=== PATIENT | male | born 1940 | race Caucasian/White ===

== ENCOUNTER 2019-08-18 17:03 | Inpatient (IN) | payer MEDICARE, OTHER ==
[2019-08-18] MEDS ORDERED: TYLENOL325 M1 PO ×2 (18:55→19:06)
[2019-08-18] MEDS ORDERED: ASPIRIN81 M1 PO (18:56)
[2019-08-18] MEDS ORDERED: DAILY VITE1 EACH PO (18:56)
[2019-08-18] MEDS ORDERED: TYLENOL EXTRA500 MG PO (18:56)
[2019-08-18] MEDS ORDERED: MELOXICAM15 MG PO (18:58)
[2019-08-18] MEDS ORDERED: IRON236 MG PO (18:58)
[2019-08-18] MEDS ORDERED: NUPLAZID34 MG PO (18:58)
[2019-08-18] MEDS ORDERED: SEROQUEL25 MG PO (18:59)
[2019-08-18] MEDS ORDERED: VITAMIN B121000 MC1 PO (19:00)
[2019-08-18] MEDS ORDERED: VITAMIN D325 MCG PO (19:00)
[2019-08-18] MEDS ORDERED: CORTEF10 M1 PO (19:01)
[2019-08-18] MEDS ORDERED: LAMICTAL200 MG PO (19:04)
[2019-08-18] MEDS ORDERED: RYTARY ER 36.21 EACH PO (19:05)
[2019-08-18] MEDS ORDERED: ARTIFICIAL TEAR1514 OU (19:10)
[2019-08-18] MEDS ORDERED: GAVISCON 80-141 EACH PO (19:11)
[2019-08-18] MEDS ORDERED: MIRALAX17 GM PO (19:12)
[2019-08-18] MEDS ORDERED: MILK OF MA400 MG/5 M PO (19:12)
[2019-08-18] MEDS ORDERED: SALINE NASAL SP88 ML INH (19:13)
--- NOTE | 2019-08-18 19:20 | NUR ---
MARCIE STRAUSSMACIE H a 79 year old M admitted via wheel chair from the ADMITTING as a voluntary admission. Arrived on unit at 1920. ALLERGIES: PENICILLINS, STATINS. Vital signs are: [id number]/73. The CLIENT'S POA signed the following forms with stated understanding: Authorization For The Release of Medical Information, Consent to Voluntary Admission and Hospitalization, Consent and Release Forms/Receipt of Rights, Acknowledgement of Advance Directive Information, Behavioral Health Consent Form, and Informed Consent of Medications. Admitted under the services of Dr. AVELINA MONTALVOHERBERTH. A search was conducted and hazardous articles were removed. Client was oriented to the unit. MACARIO BYRNE
[2019-08-18 19:54] VITALS: BP 139/73
--- NOTE | 2019-08-18 21:12 | NUR ---
DR DELEON UPDATED ABOUT ADMISSION ON [phone]. PATIENT PLACED UNDER DR DAINEL FOR MEDICAL MANAGEMENT
--- NOTE | 2019-08-18 21:14 | NUR ---
MESSAGE LEFT WITH EXPANDER MACHINE OPERATOR YESSICA THOMAS ABOUT PATIENT BEING ADMITTED TO UNIT WITH ADMIT TIME TO UNIT, DIAGNOSIS, AND STATUS OF ADMISSION
--- NOTE | 2019-08-18 21:20 | NUR ---
DR HERNANDEZ ON UNIT TO SEE PATIENT
[2019-08-18 22:00] VITALS: BP 139/73
--- NOTE | 2019-08-18 22:45 | NUR ---
DR DELEON UPDATED ABOUT PATIENT GRIMACING AND GUARDING LEFT SHOULDER. PATIENT WITH LIMITED RANGE OF MOTION AT THIS TIME. DR DELEON UPDATED ON [phone] AND WITH NEW ORDER FOR LEFT SHOULDER XRAY. PATIENT WITH SCATTERED BRUISING ON BILATERAL UPPER EXTREMITIES AND ON LEFT LATERAL BACK AT VARIOUS STAGES OF HEALING. DRY SCABBED AREA WITH SURROUNDING PINK SKIN AND BLANCHABLE AND OPEN TO AIR TO LEFT BASE OF KNUCKLE ON RING FINGER. NO DRAINAGE NOTED.
--- NOTE | 2019-08-18 22:45 | NUR ---
DR DELEON UPDATED ABOUT PATIENT GRIMACING AND GUARDING LEFT SHOULDER. PATIENT WITH LIMITED RANGE OF MOTION AT THIS TIME. DR DELEON UPDATED ON [phone] AND WITH NEW ORDER FOR LEFT SHOULDER XRAY. PATIENT WITH SCATTERED BRUISING ON BILATERAL UPPER EXTREMITIES AND ON LEFT LATERAL BACK AT VARIOUS STAGES OF HEALING. DRY SCABBED AREA WITH SURROUNDING PINK SKIN AND BLANCHABLE AND OPEN TO AIR TO LEFT BASE OF KNUCKLE ON RING FINGER. NO DRAINAGE NOTED. PATIENT WITH PINK BUTTOCKS BUT BLANCHABLE. HYDORGUARD APPLIED
--- NOTE | 2019-08-18 23:10 | NUR ---
RADIOLOGY ON UNIT TO OBTAIN LEFT SHOULDER XRAY.
--- NOTE | 2019-08-19 01:51 | NUR ---
PATIENT IS FROM [facility] P-CONFUSION, EUTHYMIC, HALLUCINATIONS I-REDIRECTION WITH 1:1 THERAPEUTIC INTERVENTIONS AND PRESENT REALITY. EDUCATE AND ENCOURAGE GROUP THERAPY WHILE AWAKE R-PATIENT MEDICATION COMPLAINT AT HS. PATIENT WITH VISUAL HALLUCINATIONS AND REACHING FOR UNSEEN OBJECTS. PATIENT WITH NONSENSICAL SPEECH AT TIMES AND WITH WORD FINDING DIFFICULTY. PATIENT WITH NONLYRICAL SINGING NOISES FOR LONG PERIODS OF TIME. PATIENT WITH NO DELUSIONS. PATIENT WITH NO SUICIDAL OR HOMICIDAL IDEATIONS. PATIENT PROVIDED FLUIDS AT HS. P-CONTINUE TO ENCOURAGE MEDICATION COMPLIANCE, CONTINUE TO PRESENT REALITY, ENCOURAGE GROUP THERAPY WHILE AWAKE
--- NOTE | 2019-08-19 05:51 | NUR ---
PATIENT SLEPT 6 HOURS OF UNINTERRUPTED SLEEP THROUGHOUT SHIFT. Q 15 MINUTE CHECKS MAINTAINED. 24 HR chart check completed.
[2019-08-19 07:09] LABS: BASO # 0.1 10*3/uL (0.0-0.1); BASO % 0.8 % (0.0-1.0); EOS # 0.5 10*3/uL (0.0-0.4); EOS % 5.5 % (1.0-4.0); HEMATOCRIT 47.5 % (42.0-52.0); HEMOGLOBIN 15.5 g/dl (14.0-18.0); LYMPH # 1.7 10*3/uL (1.3-4.4); LYMPH % 20.6 % (27.0-41.0); MEAN CORPUSCULAR HGB 33.6 pg (27.0-31.0); MEAN CORPUSCULAR HGB CONC 32.6 g/dl (33.0-37.0); MEAN PLATELET VOLUME 9.2 fl (9.6-12.3); MONO # 0.9 10*3/uL (0.1-1.0); MONO % 10.2 % (3.0-9.0); NEUT # 5.2 10*3/uL (2.3-7.9); NEUT % 62.5 % (47.0-73.0); PLATELET COUNT AUTOMATED 285 10*3/uL (130-400); RED BLOOD COUNT 4.61 10*6/uL (4.50-5.90); WHITE BLOOD COUNT 8.3 10*3/uL (4.8-10.8)
[2019-08-19 07:21] LABS: ALBUMIN 3.6 gm/dl (3.1-4.5); ALKALINE PHOSPHATASE 79 U/L (45-117); BUN 22 mg/dl (7-24); CHLORIDE 104 mmol/L (98-107); CHOLESTEROL 168 mg/dL (<200); CREATININE 1.03 mg/dL (0.70-1.30); POTASSIUM 4.3 mmol/L (3.5-5.1); SGOT/AST 12 IU/L (3-35); SGPT/ALT 10 U/L (12-78); SODIUM 139 mmol/L (136-145); TOTAL PROTEIN 6.9 gm/dL (6.4-8.2); TRIGLYCERIDES 97 mg/dl (<150); VLDL CHOLESTEROL 19 mg/dL (6-40)
[2019-08-19 07:23] LABS: HDL CHOLESTEROL 40 mg/dl (40-60); LDL CHOLESTEROL 109 mg/dL (9-159)
[2019-08-19 07:30] LABS: THYROID STIM HORMONE (HS) 0.974 uIU/ml (0.358-4.75)
[2019-08-19 08:00] VITALS: BP 140/66
[2019-08-19 08:41] LABS: VITAMIN D, 25-HYDROXY 64.7 ng/mL (30-100)
--- NOTE | 2019-08-19 08:41 | NUR ---
Patient quiet in dining room with no c/o discomfort. Respirations easy and regular. Vital signs stable. No overt distress. JJ GARCIA
--- NOTE | 2019-08-19 10:00 | NUR ---
PT C/O ABDOMINAL DISCOMFORT TO DR. SORTO. ACCORDING TO TELEPHONE CONVERSATION THIS MORNING WITH NURSE AT [facility], PT HAD A FALL ON WHERE PT WAS FOUND SITTING ON FLOOR BETWEEN W/C AND DRESSER. NURSE STATES NOTES READ THAT PT HAD RED AREAS TO RIGHT UPPER BACK AND BACK OF UPPER ARMS. PT HAD DENIED HITTING HIS HEAD. PT ALSO STATES THAT THEY HAVE NO REPORTED BM FOR PT SINCE 08/16/19. PRN TYLENOL AND MILK OF MAGNESIA GIVEN AT THIS TIME. BOWEL SOUNDS ACTIVE X 4. TENDERNESS AND GUARDING NOTED TO ALL QUADRANTS.
--- NOTE | 2019-08-19 11:10 | NUR ---
PT ATTEMPTING TO GET OUT OF SHIREEN CHAIR. WHEN REDIRECTED PT BECAME COMBATIVE. SECURITY ON UNIT AT THIS TIME TO ASSIST WHILE MAKING ROUNDS. PT MOVED TO LOW STIMULI ENVIRONMENT AND 1:1 PROVIDED. PT ACTIVELY HALLUCINATING. PT REACHING OUT AT UNSEEN OBJECTS AND YELLING GET OUT OF HERE TO UNSEEN OTHERS.
--- NOTE | 2019-08-19 11:36 | NUR ---
PT CONTINUES TO HALLUCINATE AND HANE VERBAL AND PHYSICAL OUTBURSTS. UNABLE TO REDIRECT PT. PT SWATTING AT OBJECTS IN THE AIR AND CONTINUES TO BE COMBATIVE WITH HOC. LOW STIMULI AND 1:1 PROVIDED AND INEFFECTIVE. SNACK/FLUID OVERED WELL AND ALSO INEFFECTIVE. PRN ATIVAN GIVEN AT THIS TIME. WILL MOINITOR EFFECTIVENESS OF MEDICATION.
--- NOTE | 2019-08-19 11:55 | NUR ---
AM GROUP/EXERCISE/LEISURE SKILLS PT OFFERED ACTIVITY BUT STATES "I LIKE TO WATCH PEOPLE PAINT" PT OBSERVING AND LISTENING TO MUSIC BUT BECAME AGITATED TOWARDS END OF GROUP ATTEMPTING TO GET OUT OF RECLINER WITHOUT ASSISTANCE, PT TRYING TO HIT STAFF THEREFORE WAS TAKEN TO LOW-STIMULI QUIET ROOM TO CALM AT THIS TIME. PT WILL BE ENOCURAGED TO ATTEND/PARTICIPATE IN AFTERNOON GROUP.
--- NOTE | 2019-08-19 12:05 | NUR ---
Psychosocial hx completed., client is a poor historian.
--- NOTE | 2019-08-19 15:58 | NUR ---
PM GROUP/CRAFT/MUSIC PT NOT IN ATTENDNACE AT THIS TIME. PT RESTING IN QUIET ROOM.
[2019-08-19 20:00] VITALS: BP 117/64
--- NOTE | 2019-08-19 22:01 | NUR ---
NONSENSICAL SPEECH. TRYING TO TALK BUT UNABLE TO PUT SENTENCE TOGETHER. MEDICATION COMPLIANT BUT REFUSED SNACK. DRANK FULL GLASS OF WATER.. PM CARE VIA MENTAL HEALTH WORKERS. UNABLE TO HAVE 1:1 DUE TO CONFUSION
--- NOTE | 2019-08-20 03:57 | NUR ---
24 HR chart check completed.
[2019-08-20 07:53] VITALS: BP 135/76
--- NOTE | 2019-08-20 09:10 | NUR ---
AND TEAM ON UNIT TO SEE PT AT THIS TIME.
--- NOTE | 2019-08-20 09:21 | NUR ---
MEL HAIR ROOTING MACHINE OPERATOR ON UNIT TO SEE PT AT THIS TIME
--- NOTE | 2019-08-20 15:19 | NUR ---
PRN MOM 30ML GIVEN AT THIS TIME FOR CONSTIPATION. +BSX4. ABD SOFT NON TENDER. NO C/O ABDOMINAL PAIN/DISCOMFORT. WILL MONITOR FOR EFFECTIVENESS.
--- NOTE | 2019-08-20 16:48 | NUR ---
P- CONFUSION, NONSENSICAL SPEECH, RANDOMLY SINGING LOUDLY THIS AM, EPISODE OF CRYING THIS AM, PT UNABLE TO STATE WHY, EPISODE OF PHYSICAL AGGRESSION THIS AFTERNOON. MED COMPLIANT. I- ORIENTATION, MOOD AND BEHAVIORS ASSESSED. ASSESSED PT FOR SI/HI, INTENT OR PLAN. ASSESSED PT FOR S/S HALLUCINATIONS, PARANOIA AND/OR DELUSIONS. MEDICATIONS ADMINISTERED PER PHYSICIAN'S ORDERS. ASSISTANCE WITH ADL CARE PROVIDED NEEDED. ENCOURAGED PT TO ATTEND AND PARTICIPATE IN MAHER MILIEU GROUPS AND ACTIVITIES. R- PT IS ALERT AND ORIENTED TO NAME ONLY, OTHERWISE CONFUSED. ST/LT MEMORY GAPS NOTED. RESPS EASY AND EVEN ON ROOM AIR. MOOD LABILE, AFFECT INAPPROPRIATE AT TIMES. PT SINGING LOUDLY THIS AM, APPEARED ELATED, LATER IN THE MORNING PT NOTED TO BE TEARFUL AND CRYING, UNABLE TO STATE WHY. EMOTIONAL SUPPORT PROVIDED. SPEECH IS LARGELY NONSENSICAL. NEEDS ANTICIPATED AND MET BY STAFF. FEEDING ASSISTANCE PROVIDED. PT DENIES SI/HI, INTENT OR PLAN. PT DENIES HALLUCINATIONS, NO RESPONSE TO INTERNAL STIMULI NOTED. NO PARANOIA OR DELUSIONS NOTED. PT NOTED WITH ONE EPISODE OF PHYSICAL AGGRESSION THIS AFTERNOON, UTILIZATION OF CALMING MUSIC IN LOW STIMULATION AREA PROVIDED AND WAS EFFECTIVE FOR CALMING PT. PT MED COMPLIANT THIS DATE WITHOUT DIFFICULTY. NO DISTRESS NOTED. P- PLAN TO CONTINUE CURRENT TREATMENT, CONTINUE TO MONITOR MOOD AND BEHAVIORS, PROVIDE APPROPRIATE REORIENTATION, REDIRECTION AND 1:1 NEEDED. CONTINUE TO ENCOURAGE MEDICATION COMPLIANCE WELL GROUP ATTENDANCE AND PARTICIPATION.
[2019-08-20 20:00] VITALS: BP 130/75
--- NOTE | 2019-08-20 20:49 | NUR ---
P--CONFUSION/RESTLESS I-ATTEMPTED 1:1 WITHOUT SUCCESS. REDIRECTIONS AND EMOTIONAL SUPPORT PROVIDED. MEDICATED PER ORDERS. BILAT ARM TREMORS NOTED. DRANK FULL GLASS OF WATER AND ATE CONTAINER OF PUDDING WITH MEDICATIONS. WILL ASK TO HAVE DEPAKOTE CHANGED TO SPRINKLES CLIENT IS CHEWING PILLS R--WORD SALAD, NONSENSICLE SPEECH. MOVING SELF AROUND IN CHAIR. APPEARS TO NOT UNDERSTAND WHAT HE IS HEARING. APPEARS TO RESPONDING TO UNSEEN OTHERS, UNSURE IF AUDITORY ALSO P--MONITOR FOR CHANGES IN MOOD/BEHAVIOR. MONITOR Q 15 MINTUES AND PRN FOR SAFETY. CONTINUE EMOTIONAL AND PHYSICAL SUPPORT
--- NOTE | 2019-08-21 00:40 | NUR ---
24 HR chart check completed.
--- NOTE | 2019-08-21 00:51 | NUR ---
INCONTINENT OF URINE. DURING CHANGE CLIENT CRYING FOR HIS MOTHER. EMOTIONAL SUPPORT PROVIDED. WILL CONTINUE TO MONITOR
--- NOTE | 2019-08-21 05:44 | NUR ---
SLEPT LESS THAN 1 HOUR THIS SHIFT. INTERMITTENT BOUTS OF CRYING THIS SHIFT CALLING FOR HIS MOTHER. EMOTIONAL SUPPORT AND TOUCH THERAPY A BENEFIT
[2019-08-21 08:00] VITALS: BP 141/80
--- NOTE | 2019-08-21 08:50 | NUR ---
DR. SINGER ON UNIT TO ASSESS PATIENT.
--- NOTE | 2019-08-21 09:24 | NUR ---
MARCIE MACIE STRAUSS [id number] Please refer to the physician's history and physical for past medical history, comorbid conditions, and allergies. Diagnosis: INTERMITTENT EXPLOSIVE DISORDER Bay Score: 13,MODERATE RISK WOUND DESCRIPTIONS: Wound Number: 1 Location of the wound: LEFT BASE OF KNUCKLE RING FINGER Type of wound: SCAB Thickness: Partial Size: 0.3cm X 0.4cm X <0.1cm Tunneling: NONE Undermining: NONE Sinus Tract: NONE Presence of Exudate:NONE Amount: None Color: Red Odor: None Periwound Skin Appearance: Intact Wound edges: CLOSED INTACT SCAB Pain (associated with wound): DENIED AT TIME OF ASSESSMENT How does patient state this happened? PATIENT UNSURE HOW THIS HAPPENED. Wound Number: 2 Location of the wound: RIGHT EAR LOBE Type of wound: SCAB Thickness: Partial Size: 1cm X 0.3cm X < 0.1cm Tunneling: NONE Undermining: NONE Sinus Tract: NONE Presence of Exudate: NONE Amount: None Color: Red Odor: None Periwound Skin Appearance: Intact Wound edges: CLOSED INTACT SCAB Pain (associated with wound): DENIED AT TIME OF ASSESSMENT How does patient state this happened? PATIENT UNSURE HOW THIS HAPPENED. Surface the patient is resting on: Proform SKIN PREVENTION RECOMMENDATION: 1. Pressure redistribution support surface as appropriate 2. Elevate heels 3. Remove boots/TEDS every shift and reapply 4. Head of bed 30 degrees as tolerated 5. Assess nutrition and hydration 6. Manage moisture 7. Avoid the use of containment devices while in bed 8. Use absorptive products on surfaces limit layers of linens on bed 9. Turn and reposition every 1-2 hours in bed and every 1 hour in chair as tolerated 10. Weight shifts every 15 minutes while up in chair 11. Offloading with pillows or device to keep heels elevated off bed 12. Monitor skin at least every shift 13. Inspect under medical devices twice a day WOUND TREATMENT RECOMMENDATIONS: DRESSING CHANGE LEFT BASE OF KNUCKLE RING FINGER AND RIGHT EAR LOBE: CLEANSE WITH NSS APPLY ANTIBIOTIC OINTMENT TWICE DAILY. MAY COVER LEFT BOTTOM OF KNUCKLE WITH BANDAID.
--- NOTE | 2019-08-21 10:38 | NUR ---
Dr. Becker notified of wound care recommendations. Dr. Becker stated to give printouts to Soha in Hospitalist office.
--- NOTE | 2019-08-21 10:39 | NUR ---
SPOKE WITH GLENIS BOCANEGRA AT [facility]. ADVISED OF PLANS TO DISCHARGE AT THE END OF THE WEEK OR BEGINNING OF NEXT WEEK. DEPENDING ON STABILITY. CLINICAL UPDATES FAXED TO FACILITY. PATIENT IS A USP CARE RESIDENT AT FACILITY AND WILL RETURN AT DISCHARGE.
--- NOTE | 2019-08-21 11:39 | NUR ---
AM GROUP PT DID NOT ATTEND MORNING GROUP THERAPY. PT WAS IN BED RESTING
[2019-08-21 14:13] LABS: BILIRUBIN NEGATIVE (NEGATIVE); BLOOD NEGATIVE (NEGATIVE); CLARITY SL CLOUDY (CLEAR); COLOR YELLOW (YELLOW); GLUCOSE NEGATIVE (NEGATIVE); KETONE 3+ (NEGATIVE)
[2019-08-21 14:14] LABS: LEUKO ESTERASE NEGATIVE (NEGATIVE); NITRITE NEGATIVE (NEGATIVE)
[2019-08-21 14:19] LABS: BACTERIA 2+; EPITHELIAL CELLS 0-2; MUCOUS TRACE; WBC 0-2 wbc/hpf (0-5)
--- NOTE | 2019-08-21 15:40 | NUR ---
PM GROUP PT DID NOT ATTEND AFTERNOON GROUP THERAPY.PT WAS IN BED RESTING.
--- NOTE | 2019-08-21 15:48 | NUR ---
Nursing screen received and chart reviewed. 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 He was [facility] and will return at the end of the week. No further OT indicated at this time. If patient should have a decline in ADLs then refer to OT. Thank you. Lola Meneses OTr/L
[2019-08-21 19:51] VITALS: BP 130/80
--- NOTE | 2019-08-21 20:23 | NUR ---
EVENING/BINGO! PT RESTING IN QUIET ROOM AT THIS TIME. PT WILL BE ENCOURAGED TO ATTEND/PARTICIPATE IN GROUP LONG APPROPIRATE.
--- NOTE | 2019-08-21 22:12 | NUR ---
Patient alert to person only with confusion noted. Memory deficits noted. No overt s/s any responding to internal stimuli noted at this time. Mood is calm at this time. Patient compliant with HS medications mixed in pudding without any difficulty. Non-sensical speech noted. Offered 1:1 for emotional support but unable to understand patient due to non-sensical speech. Redirected/reoriented when needed. Plan to continue to encourage medication compliance. Also continue to offer emotional support and redirect/reorient when needed/appropriate. Will continue to monitor moods/behaviors. Q 15 minute safety checks continued and maintained. See [facility] flowsheet for further documentation.
--- NOTE | 2019-08-22 00:25 | NUR ---
24 HR chart check completed.
--- NOTE | 2019-08-22 02:35 | NUR ---
Patient combative with hands on care. Patient attempting to get out of bed. Patient placed in gerichair due to no safety awareness. Patient brought to quiet room across from nurses' desk. Will continue to monitor moods/behaviors.
--- NOTE | 2019-08-22 03:58 | NUR ---
Upon discharge recommend patient to follow up for wound care in outpatient setting continue current wound care orders at discharging facility.
--- NOTE | 2019-08-22 05:33 | NUR ---
Patient slept approx. 2 hours throughout shift. Q 15 minute safety checks continued and maintained.
--- NOTE | 2019-08-22 07:57 | NUR ---
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 Pt will return to facilty at discharge. Please consult PT if pt has a decline in fucntional status from annabel, thank you. Heather Jenkins PT
[2019-08-22 08:00] VITALS: BP 125/76
--- NOTE | 2019-08-22 08:30 | NUR ---
TREATMENT PLAN MEETING WAS HELD WITH DR. QUAN, ZULEIKA MISTRY, RN, AT, GLASS BLOWER-S AND CHANCELLOR. PLAN FOR DISCHARGE NEXT WEEK. PT. TO RETURN TO [facility] AT DISCHARGE.
--- NOTE | 2019-08-22 08:40 | NUR ---
Dr. Newman notified of wound care recommendations
--- NOTE | 2019-08-22 08:50 | NUR ---
DR. SINGER ON UNIT TO ASSESS PATIENT.
--- NOTE | 2019-08-22 11:41 | NUR ---
AM GROUP PT WAS PRESENT FOR MORNING GROUP THERAPY BUT IS UNABLE TO PARTICIPATE AT THIS TIME DUE TO COGNITIVE IMPAIRMENT. PT WAS IN A SHIREEN CHAIR WITH THE TRAY LOCKED ON AT THE START OF GROUP AND WAS AGITATED AND TRYING TO REMOVE IT. PT TRAY WAS REMOVED AND PT WAS SAT NEAR ME. ANY ATTEMPTS AT CONVERSATION WERE MET WITH AGITATION AND VERBAL AGGRESSION. OTHERWISE, PT WAS NONSENSICAL AND REPETATIVE. PT SMACKED MY ARM A FEW TIMES AND WHEN ASKED WHY HE WAS HITTING ME, THE PT YELLED OUT, "BECAUSE YOU DON'T UNDERSTAND THE THING OF THE MAYBE..."
--- NOTE | 2019-08-22 18:43 | NUR ---
P: TEARFUL, CRYING THROUGHOUT THE DAY, SAD DEMEANOR, DEPRESSED MOOD I: ONE ON ONE FOR EMOTIONAL SUPPORT, REDIRECTION AND ENCOURAGE GROUP ACTIVITIES R: PATIENT IS ALERT TO HANDS ON CARE. LONG/SHORT TERM MEMORY DEFICITS. MOOD IS DEPRESSED MOOD. NO RESPONSE TO INTERNAL STIMULI. NO VOICED STATEMENTS OF HI/SI OR PAIN. MEDICATION COMPLIANT. Q 15 MINUTE SAFETY CHECKS MAINTAINED. 2 PERSON ASSIST WITH ACTIVITIES OF DAILY LIVING, INCONTINENT OF BOWEL AND BLADDER. SET UP FOR MEALS WITH ONE PERSON ASSIST. UP IN SHIREEN CHAIR FOR COMFORT. P: CONTINUE TO MONITOR FOR AGGRESSION AND OUTBURST. PROVIDE ONE ON ONE AND REDIRECTION NEEDED.
[2019-08-22 20:00] VITALS: BP 146/83
--- NOTE | 2019-08-22 20:45 | NUR ---
EVENING/GAMES/CRAFT PT IN ATTENDNACE FIRST 5 MINUTES OF GROUP BUT BEGAN YELLING OUT AND WAS UNABLE TO BE REDIRECTED AT THIS TIME. PT TAKEN TO LOW STIMULI QUIET ROOM TO CALM.
--- NOTE | 2019-08-22 21:48 | NUR ---
Patient alert to person only with confusion noted. Memory deficits noted. No overt s/s any responding to internal stimuli noted at this time. Mood is calm at this time. Patient compliant with HS medications mixed in pudding without any difficulty. Non-sensical speech noted. Offered 1:1 for emotional support but unable to understand patient due to non-sensical speech. Redirected/reoriented when needed. Plan to continue to encourage medication compliance. Also continue to offer emotional support and redirect/reorient when needed/appropriate. Will continue to monitor moods/behaviors. Q 15 minute safety checks continued and maintained. See [facility] flowsheet for further documentation.
--- NOTE | 2019-08-22 21:50 | NUR ---
Staff assisted patient to bed for sleep. Staff noticed reddened abrased area noted to rt inner knee area. No drainage noted at this time. Skin intact at this time. Dr. Kilgore and Alicia Breaux(nursing powerhouse mechanic supervisor) notified. Awaiting wound care orders from doctor.
--- NOTE | 2019-08-22 22:35 | NUR ---
Attempted to call family regarding wound no answer,left message on answering machine.
--- NOTE | 2019-08-23 00:12 | NUR ---
24 HR chart check completed.
--- NOTE | 2019-08-23 05:00 | NUR ---
Patient clamps knees together while in bed or/and in chair.
--- NOTE | 2019-08-23 05:14 | NUR ---
Patient slept approx. 6 hours throughout shift. Q 15 minute safety checks continued and maintained.
--- NOTE | 2019-08-23 05:43 | NUR ---
MARCIE STRAUSSMACIE [id number] Please refer to the physician's history and physical for past medical history, comorbid conditions, and allergies. Diagnosis: INTERMITTENT EXPLOSIVE DISORDER Bay Score: 13,MODERATE RISK WOUND DESCRIPTIONS: Wound Number: 3 Location of the wound: right inner aspect of knee Type of wound: stage 2 Thickness: Partial Size: 3.0cm x 2.0cm x <0.1cm Tunneling: none Undermining: none Sinus Tract: none Presence of Exudate: none Amount: None Color: Red Odor: None Periwound Skin Appearance: Normal Wound edges: intact serum filled blister Pain (associated with wound): none at time of assessment How does patient state this happened? pt unable to state how this happend Surface the patient is resting on: Proform SKIN PREVENTION RECOMMENDATION: 1. Pressure redistribution support surface as appropriate 2. Elevate heels 3. Remove boots/TEDS every shift and reapply 4. Head of bed 30 degrees as tolerated 5. Assess nutrition and hydration 6. Manage moisture 7. Avoid the use of containment devices while in bed 8. Use absorptive products on surfaces limit layers of linens on bed 9. Turn and reposition every 1-2 hours in bed and every 1 hour in chair as tolerated 10. Weight shifts every 15 minutes while up in chair 11. Offloading with pillows or device to keep heels elevated off bed 12. Monitor skin at least every shift 13. Inspect under medical devices twice a day WOUND TREATMENT RECOMMENDATIONS: Clarify Stage 2 guidelines: Cleanse right inner aspect of knee with nss and apply sureprep to wound and cover with optifoam gentle every 2 days and prn for soiling. Please keep pillow or blanket between knees at all times expect for hygiene purposes.
[2019-08-23 07:32] VITALS: BP 131/75
--- NOTE | 2019-08-23 08:16 | NUR ---
PHYSICAL THERAPY Second nursing screen received, pt is a LTC resident at [facility] per nsg and recreational notes pt still with periods of agitation. Please consult PT if pt has had a decline in functiont status and is able to participate with therapy, thank you Heather Jenkins PT
--- NOTE | 2019-08-23 08:30 | NUR ---
TREATMENT PLAN MEETING WAS HELD WITH DR. QUAN, ZULEIKA MISTRY, RN, AT, BUSINESS PLANNING ANALYST-S AND CHIEF FINANCIAL OFFICER. PLAN FOR DISCHARGE NEXT WEEK. PT. WILL RETURN TO [facility] AT DISCHARGE.
--- NOTE | 2019-08-23 11:33 | NUR ---
Nutritional Support Services Note: Pt has wounds. Appetite varies. Regular diet as ordered. Ensure with meals tid. Staff to encourage intake. [place] food preferences and assist as needed. Shelby Zavaleta Rdn Ld
--- NOTE | 2019-08-23 11:47 | NUR ---
AM GROUP PT DID NOT ATTEND MORNING GROUP THERAPY. PT WAS IN BED RESTING.
--- NOTE | 2019-08-23 13:51 | NUR ---
CLINICAL UPDATES FAXED TO [facility] ATTN: GLENIS BOCANEGRA.
--- NOTE | 2019-08-23 15:49 | NUR ---
GROUP/CRAFTS PT IS UNABLE TO ATTEND OR PARTICIPATE IN GROUP THERAPY AT THIS TIME. PT WAS IN BED RESTING.
--- NOTE | 2019-08-23 17:50 | NUR ---
The patient has no complaints and is resting comfortably. BERNADETTE JOAQUIN
[2019-08-23 19:42] VITALS: BP 130/76
--- NOTE | 2019-08-23 22:17 | NUR ---
P- ALERT TO PERSON ONLY. PT ONLY VERBALIZING "NOO" "OHH". I- ASSESS MOOD, ORIENTATION, SI/HI, HALLUCINATIONS, DELUSIONS, OR PAIN. 1:1 THERAPEUTIC INTERACTION WITH EMOTIONAL SUPPORT AND VENTILATION OF FEELINGS PROVIDED. OFFER HS SNACK, FLUIDS, AND COMFORT. PROVIDE MEDICATIONS ON TIME WITH EDUCATION ON EACH. FREQUENT TURNING SCHEDULE, ASSIST WITH ADLS AND TRANSFERING. R- PATIENT SITTING IN DINING ROOM AT TIME OF INTERVIEW WATCHING TV NO ADVERSE MOODS NOTED. ALERT TO PERSON ONLY, CONFUSION NOTED. WHEN ASSESSING ORIENTATION, SI/HI, HALLUCINATIONS, DELUSIONS, OR PAIN PT WOULD ONLY RESPOND STATING "NOOO" OR "OH". NO S/S OF INTERACTING WITH INTERNAL STIMULI. NO S/S OF DISTRESS NOTED, RESPS EVEN AND UNLABORED ON ROOM AIR. MEDICATION COMPLIANT WITH NO DIFFICULTY. COMPLIANT WITH DRESSING CHANGES. PATIENT REFUSED HS SNACK/FLUIDS. PT DID TAKE MEDICATIONS WITH SOME PUDDING. PT WANTING TO GO TO BED AFTER MEDICATIONS. TWO ASSIST TO BED. ASSIST WITH ADLS AND FREQUENT TURNING. P- ASSESS MOOD, ORIENTATION, SI/HI, HALLUCINATOINS, DELUSIONS OR PAIN EVERY SHIFT. PROVIDE MEDS ON TIME. ENCOURAGE FOOD, FLUIDS FREQUENTLY. ASSIST WITH TRANSFERING, ADLS, AND FREQUENT TURNING. 1:1 THERAPEUTIC COMMUNICATION PROVIDED WHEN NECESSARY. FALLING STAR PROGRAM IN PLACE. Q15 MINUTE CHECKS MAINTAINED FOR SAFETY.
--- NOTE | 2019-08-24 06:17 | NUR ---
PATIENT SLEPT 8 HOURS OF UNINTERRUPTED SLEEP THROUGHOUT SHIFT. Q 15 MINUTE CHECKS MAINTAINED. 24 HR chart check completed.
--- NOTE | 2019-08-24 08:01 | NUR ---
Patient eating breakfast in dining room with peers. MHW x1 assisting pt with eating. Respirations easy and regular. Vital signs stable. No overt distress. MARKEL PETER on unit to see pt at this time, update given.
[2019-08-24 08:04] VITALS: BP 112/62
--- NOTE | 2019-08-24 08:40 | NUR ---
ON UNIT TO SEE PT AT THIS TIME.
--- NOTE | 2019-08-24 09:00 | NUR ---
TREATMENT PLAN MEETING WAS HELD WITH DR. QUAN, RN, AT, VAN DRIVER-S AND HOUSEKEEPING DIRECTOR. PLAN FOR DISCHARGE NEXT WEEK WITH RETURN TO [facility].
--- NOTE | 2019-08-24 11:42 | NUR ---
AM GROUP PT WAS PRESENT FOR MORNING GROUP THERAPY RECLINED IN A SHIREEN CHAIR SLEEPING. PT WOKE A FEW TIMES, LOOKED AROUND AND WENT BACK TO SLEEP.
--- NOTE | 2019-08-24 13:33 | NUR ---
P- CONFUSION, NAPPING INTERMITTENTLY T/O SHIFT, EASILY AROUSABLE. NO ADVERSE BEHAVIORS. I- ORIENTATION, MOOD AND BEHAVIORS ASSESSED. ASSESSED PT FOR SI/HI, INTENT OR PLAN. ASSESSED PT FOR S/S HALLUCINATIONS, PARANOIA AND/OR DELUSIONS. MEDICATIONS ADMINISTERED PER PHYSICIAN'S ORDERS. ASSISTANCE WITH ADL CARE PROVIDED NEEDED. ENCOURAGED PT TO ATTEND AND PARTICIPATE IN MAHER MILIEU GROUPS AND ACTIVITIES. R- PT IS ALERT AND ORIENTED TO NAME ONLY, OTHERWISE CONFUSED. MEMORY GAPS NOTED. RESPS EASY AND EVEN ON ROOM AIR. MOOD STABLE THIS SHIFT WITH FLAT AFFECT. SPEECH SOFT, GARBLED AT TIMES. PT DENIES SI/HI, INTENT OR PLAN. PT DENIES HALLUCINATIONS, NO RESPONSE TO INTERNAL STIMULI NOTED. NO PARANOIA OR DELUSIONS NOTED. MED COMPLIANT WITHOUT DIFFICULTY. PT NAPPING INTERMITTENTLY T/O SHIFT, EASILY AROUSABLE WHEN CALLED BY NAME. COMPLIANT WITH HANDS ON CARE. NO AGGRESSIVE BEHAVIORS. NO INAPPROPRIATE OUTBURSTS OF SINGING OR CRYING. NO DISTRESS NOTED. Q2H TURN/REPOSITIONING MAINTAINED, WOUND CARE COMPLETED ORDERED, SEAT CUSHION UTILIZED FOR TIME SPENT OUT OF BED AND POSITIONING WEDGE USED FOR PRESSURE OFF-LOADING WHILE IN BED. P- PLAN TO CONTINUE CURRENT TREATMENT, CONTINUE TO MONITOR MOOD AND BEHAVIORS, PROVIDE APPROPRIATE REORIENTATION, REDIRECTION AND 1:1 NEEDED. CONTINUE TO ENCOURAGE MEDICATION COMPLIANCE WELL GROUP ATTENDANCE AND PARTICIPATION.
--- NOTE | 2019-08-24 15:44 | NUR ---
PM GROUP PT DID NOT ATTEND AFTERNOON GROUP THERAPY. PT WAS IN BED RESTING.
--- NOTE | 2019-08-24 17:00 | NUR ---
PT WOKE UP FROM AFTERNOON NAP SMILING, GIGGLING AND JOKING WITH STAFF.
[2019-08-24 20:00] VITALS: BP 110/64
--- NOTE | 2019-08-24 22:07 | NUR ---
NONVERBAL WITH ME. MEDICATIONS TAKEN WITH DIFFICULTY. ATE HIS SNACK. MOVES SELF IN BED. WILL MONITOR FOR CHANGES IN MOOD/BEHAVIOR AND Q15 MIN AND PRN FOR SAFETLY. PROVIDE EMOTIONAL SUPPORT
--- NOTE | 2019-08-25 04:28 | NUR ---
24 HR chart check completed.
--- NOTE | 2019-08-25 06:46 | NUR ---
SLEPT 6 HOURS INTERUPTED TO TURN
[2019-08-25 08:00] VITALS: BP 113/72
--- NOTE | 2019-08-25 09:20 | NUR ---
DR. SINGER ON UNIT TO ASSESS PATIENT.
--- NOTE | 2019-08-25 11:45 | NUR ---
AM GROUP/WATERCOLORS PT WAS PRESENT FOR MORNING GROUP THERAPY RECLINED IN A SHIREEN CHAIR SLEEPING. PT DID NOT WAKE DURING GROUP.
--- NOTE | 2019-08-25 11:49 | NUR ---
SPOKE WITH GLENIS BOCANEGRA AT [facility]. ADVISED OF PLANS TO DISCHARGE NEXT WEEK. CLINICAL UPDATES FAXED TO FACILITY [phone].
--- NOTE | 2019-08-25 13:55 | NUR ---
P: TEARFUL AT TIMES I: ONE ON ONE PROVIDED FOR EMOTIONAL SUPPORT R: EFFECTIVE. PATIENT IS ALERT AND ORIENT TO PERSON WITH CONFUSION. LONG/SHORT TERM MEMORY DEFICITS. MOOD IS STABLE, PLEASANT DEMEANOR. DENIES ANY HALLUCINATIONS, DELUSIONS, HI/SI OR PAIN. MEDICATION COMPLAINT WITH EDUCATION PROVIDED. Q 15 MINUTE SAFETY CHECKS MAINTAINED. 1-2 PERSON ASSIST WITH ACTIVITIES OF DAILY LIVING, INCONTINENT OF BOWEL AND BLADDER. SET UP FOR MEALS, INTAKES ARE GOOD WITH ADEQUATE FLUIDS. NO RESPONSE TO INTERNAL STIMULI. UP IN SHIREEN CHAIR FOR COMFORT, INTERACTIVE WITH STAFF AND PARTICIPATES IN GROUP SESSION. P: CONTINUE TO MONITOR FOR AGGRESSION; PROVIDE ONE ON ONE, REDIRECTIONS/ORIENTATION AND SPACE NEEDED.
--- NOTE | 2019-08-25 16:59 | NUR ---
ASSISTED PATIENT VIA SHIRLEY WITH 2 ASSIST. NO AGGRESSION NOTED WITH HANDS ON CARE. EVEN MEDICAITONS GIVEN. PATIENT LET MEDICINE RUN OUT OF HIS MOUTH. PROVIDE PATIENT WITH A SPOONFUL OF ENSURE DRINK. PATIENT SWALLOWED THAT SPOONFUL. VITALS: 97.6, 114/60, 78, 16, 95%RA. PATIENT RETURNED TO RESTING WITH EYES CLOSED. DR. RAMON NOTIFIED AND ON UNIT TO ASSESS PATIENT.
--- NOTE | 2019-08-25 18:16 | NUR ---
PATIENT IS ALERT TO SELF AND HANDS ON CARE, CONFUSED. LONG/SHORT TERM MEMORY DEFICITS. MOOD IS HOPELESS/HELPLESS WITH FLAT AFFECT. NO VOICED STATEMENT OF HI/SI OR PAIN. NO RESPONSE TO INTERNAL STIMULI. 2 PERSON ASSIST WITH ACTIVITIES OF DAILY LIVING, INCONINENT OF BOWEL AND BLADDER. SET UP FOR MEALS. NO INTAKE NOTED FOR DINNER. MEDICATION COMPLIANT. Q 15 MINUTE SAFETY CHECKS MAINTAINED. NO AGGRESSION DURING HANDS ON CARE. CONTINUT TO MONITOR FOR AGGRESSION; PROVIDE ONE ON ONE, REDIRECTION/ORIENTATION AND SPACE NEEDED.
[2019-08-25 19:46] VITALS: BP 120/80
--- NOTE | 2019-08-25 20:31 | NUR ---
CLIENT CHANTING AND WHISTLING AND USING TABLE DRUMS. NOT USING WORDS. ATE SNACK WELL AND IS MEDICATION COMPLIANT. WILL MONITOR FOR CHANGES IN BEHAVIOR/MOOD AND Q15 MIN AND PRN FOR SAFETY. EMOTIONAL SUPPORT PROVIDED
--- NOTE | 2019-08-26 06:07 | NUR ---
24 HR chart check completed.
[2019-08-26 08:00] VITALS: BP 135/72
--- NOTE | 2019-08-26 11:52 | NUR ---
AM GROUP/EXERCISE/COLOR THERAPY/CRAFT PT IN ATTENDNACE RESTING FIRST HALF OF GROUP. PT WOKE TO OBSERVE COLOR THERAPY AND SOCIALIZE SOME. PT PLEASNAT WITH NO AGGRESSION EXPRESSED AT THIS TIME. PT WILL CONTINUE TO ATTEND/PARTICIPATE TO BETS OF ABILITY IN FUTURE GROUP SESSIONS.
--- NOTE | 2019-08-26 15:42 | NUR ---
PM GROUP/LEISURE SKILLS PT IS IN BED RESTING AT THIS TIME.
--- NOTE | 2019-08-26 16:57 | NUR ---
PT ALERT TO PERSON WITH CONFUSION NOTED. NO ADVERSE MOODS OR BEHAVIORS NOTED THIS SHIFT. PT COOPERATIVE. NO IRRITABILTY OR COMBATIVENESS NOTED. NO YELLING NOTED. NO TEARFUL EPISODES NOTED. PARTICIPATED IN GROUP WELL. NO HALLUCINATIONS OR DELUSIONS NOTED. NO C/O PAIN. NO SI/HI NOTED. PT INTERACTIVE WITH STAFF AND PEERS. BEHAVIORS MONITORED WITH Q15 MINUTE SAFETY CHECKS. MEDICATION COMPLIANT WITHOUT DIFFICULTY. WILL CONTINUE TO REORIENT PT WHEN NEEDED, ENCOURAGE GROUP PARTICIPATION, AND MEDICATION COMPLIANCE. SEE [facility] FLOWSHEET FOR SPECIFIC MONITORING.
[2019-08-26 20:00] VITALS: BP 138/68
--- NOTE | 2019-08-26 21:44 | NUR ---
Patient alert to person only with confusion noted. Memory deficits noted. No overt s/s any responding to internal stimuli noted at this time. Mood is calm at this time. Patient compliant with HS medications mixed in pudding without any difficulty. Patient talked and was able to understand patient. Provided 1:1 for emotional support. Redirected/reoriented when needed. Plan to continue to encourage medication compliance. Also continue to offer emotional support and redirect/reorient when needed/appropriate. Will continue to monitor moods/behaviors. Q 15 minute safety checks continued and maintained. See [facility] flowsheet for further documentation.
--- NOTE | 2019-08-27 00:57 | NUR ---
24 HR chart check completed.
--- NOTE | 2019-08-27 05:13 | NUR ---
Patient slept approx. 4 hours throughout shift. Q 15 minute safety checks continued and maintained.
[2019-08-27 07:31] VITALS: BP 124/67
--- NOTE | 2019-08-27 11:48 | NUR ---
AM GROUP/EXERCISE/DISCUSSION/CRAFT PT IN ATTENDNACE BUT UNABLE TO PARTICIPATE DUE TO LEVELS OF COGNITION. PT PLEASANTLY CONFUSED WITH NO AGGRESSION EXPRESSED AT THIS TIME. PT WILL CONTINUE TO ATTEND AND BE ENCOURAGED TO PARTICIPATE TO BEST OF PT ABILITY.
--- NOTE | 2019-08-27 18:28 | NUR ---
PT ALERT TO PERSON WITH CONFUSION NOTED. NO ADVERSE MOODS OR BEHAVIORS NOTED THIS SHIFT. PT COOPERATIVE. NO IRRITABILTY OR COMBATIVENESS NOTED. NO YELLING NOTED. NO TEARFUL EPISODES NOTED. PARTICIPATED IN GROUP WELL. NO HALLUCINATIONS OR DELUSIONS NOTED. NO C/O PAIN. NO SI/HI NOTED. PT INTERACTIVE WITH STAFF AND PEERS. BEHAVIORS MONITORED WITH Q15 MINUTE SAFETY CHECKS. MEDICATION COMPLIANT WITHOUT DIFFICULTY. WILL CONTINUE TO REORIENT PT WHEN NEEDED, ENCOURAGE GROUP PARTICIPATION, AND MEDICATION COMPLIANCE. SEE [facility] FLOWSHEET FOR SPECIFIC MONITORING.
[2019-08-27 20:00] VITALS: BP 119/69
--- NOTE | 2019-08-27 21:18 | NUR ---
Patient alert to person only with confusion noted. Memory deficits noted. No overt s/s any responding to internal stimuli noted at this time. Mood is calm at this time. Patient interactive with staff and other patients. Patient compliant with HS medications mixed in pudding without any difficulty. Patient talked and was able to understand patient. No adverse behaviors or moods noted at this time. Provided 1:1 for emotional support. Redirected/reoriented when needed. Plan to continue to encourage medication compliance. Also continue to offer emotional support and redirect/reorient when needed/appropriate. Will continue to monitor moods/behaviors. Q 15 minute safety checks continued and maintained. See [facility] flowsheet for further documentation.
--- NOTE | 2019-08-28 00:08 | NUR ---
24 HR chart check completed.
--- NOTE | 2019-08-28 05:16 | NUR ---
Patient slept approx. 3 hours restlessly throughout shift. Q 15 minute safety checks continued and maintained.
--- NOTE | 2019-08-28 07:16 | NUR ---
MARCIE STRAUSSMACIE [id number] Please refer to the physician's history and physical for past medical history, comorbid conditions, and allergies. Diagnosis: INTERMITTENT EXPLOSIVE DISORDER Bay Score: 13,MODERATE RISK WOUND DESCRIPTIONS: Wound Number: 1 Location of the wound: LEFT BASE OF KNUCKLE RING FINGER no open areas at time of assessment. No drainage noted at time of assessment. Wound Number: 2 Location of the wound: right ear lobe no open areas noted at time of assessment. No drainage ntoed at time of assessment. Wound Number: 3 Location of the wound: right inner aspect of knee Type of wound: stage 2 Thickness: Partial Size: 2.6cm x 0.7cm x <0.1cm Tunneling: none Undermining: none Sinus Tract: none Presence of Exudate: Serosanguineous Amount: Light Color: Red Odor: None Periwound Skin Appearance: Normal Wound edges: approximated Pain (associated with wound): none at time of assessment Surface the patient is resting on: Proform SKIN PREVENTION RECOMMENDATION: 1. Pressure redistribution support surface as appropriate 2. Elevate heels 3. Remove boots/TEDS every shift and reapply 4. Head of bed 30 degrees as tolerated 5. Assess nutrition and hydration 6. Manage moisture 7. Avoid the use of containment devices while in bed 8. Use absorptive products on surfaces limit layers of linens on bed 9. Turn and reposition every 1-2 hours in bed and every 1 hour in chair as tolerated 10. Weight shifts every 15 minutes while up in chair 11. Offloading with pillows or device to keep heels elevated off bed 12. Monitor skin at least every shift 13. Inspect under medical devices twice a day WOUND TREATMENT RECOMMENDATIONS: Continue stage 2 guidelines to right inner aspect of knee. D/C dressing change to left base of knuckle ring finger and right ear lobe.
[2019-08-28 07:46] VITALS: BP 116/70
--- NOTE | 2019-08-28 08:30 | NUR ---
TREATMENT PLAN MEETING WAS HELD WITH DR. QUAN, ZULEIKA MISTRY, RN, AT, [employer]. PLAN FOR DISCHARGE WEDNESDAY. PATIENT WILL RETURN TO [facility].
--- NOTE | 2019-08-28 11:32 | NUR ---
PATIENT HAVING FACIAL GRIMACING, COMPLAINT OF PAIN. PATIENT POINTED TO STOMACH. TOUCHED PATIENT'S ABDOMEN. PATIENT GRIMACING IN PAIN. BOWEL SOUNDS ACTIVE X 4. ANGELA READ CNP NOTIFIED. LAST BOWEL MOVEMENT ON 08/23/19. NOW ORDER FOR DULCOLAX 10MG PO NOW.
--- NOTE | 2019-08-28 11:47 | NUR ---
AM GROUP PT WAS PRESENT FOR MORNING GROUP THERAPY AND PARTICIPATED BY LOOKING AT THE NEWSPAPER. PT IS SOFT SPOKEN AND KEPT STATING, "I NEED SOMEONE TO HELP ME GET UPTOWN." PT WAS EASILY REDIRECTED AND EXHIBITED NO AGITATION OR AGGRESSION.
--- NOTE | 2019-08-28 12:32 | NUR ---
SPEECH PATHOLOGY Clinical swallowing evaluation completed as per orders. Medical history includes Lewy body dementia, Parkinson disease, intermittent explosive disorder. Reports indicate slow chewing and swallowing. Patient receives a regular diet and thin liquid. He was seen during lunchtime meal with a variety of items. Patient was alert with confusion and displayed difficulty following commands. Generalized weakness was displayed. With solid consistency, patient displayed slight oral residue post swallow which cleared when alternating with a liquid. No cough or wet vocal quality was displayed. Recommend patient remain on regular diet, but order foods that are softer and easier to chew and propel to decrease fatigue during the meal. Follow up therapy is recommended to ensure safety with highest level diet. Results and bc. were shared with patient's nurse who verbalized understanding. Refer to report in [employer] for further information. Thank you for this referral. SONU ROSALES MSCCC-SR. MANAGER
--- NOTE | 2019-08-28 14:40 | NUR ---
Alert to person and place with confusion. Short term and usp memory deficit. No hallucinations or delusions. Patient mood is stable. No suicidal, HI or pain. No response to internal stimuli. Compliant with medications. Two person assist with ADL's and transfers via mechanical lift. Up to a daniel chair for comfort. Incontinent of bowel and bladder. Total assist with care. Set up for meals. Plan is to monitor aggression and yelling outburst, Q 15 minutes checks. Provide 1:1 for emotional support and redirection as needed.
--- NOTE | 2019-08-28 15:43 | NUR ---
PM GROUP PT WAS PRESENT AT THE START OF GROUP AND WAS RECLINED IN A SHIREEN CHAIR AND SLEPT UNTIL REMOVED BY [facility].
[2019-08-28 19:45] VITALS: BP 116/65
--- NOTE | 2019-08-28 20:28 | NUR ---
EVENING/LEISURE SKILLS PT IN ATTENDNACE WATCHING MOVIE. PT STATES "I REALLY LIKE THE STORY TO THIS MOVIE." PT PLEASANT WITH NO AGGRESSION AT THIS TIME.
--- NOTE | 2019-08-28 21:19 | NUR ---
Patient alert to person and place with confusion noted. Memory deficits noted. No overt s/s any responding to internal stimuli noted at this time. Mood is calm at this time. Patient interactive with staff and other patients. Patient compliant with HS medications mixed in pudding without any difficulty. Patient talked,was able to make his needs known and was able to understand patient. No adverse behaviors or moods noted at this time. Provided 1:1 for emotional support. Redirected/reoriented when needed. Plan to continue to encourage medication compliance. Also continue to offer emotional support and redirect/reorient when needed/appropriate. Will continue to monitor moods/behaviors. Q 15 minute safety checks continued and maintained. See [facility] flowsheet for further documentation.
--- NOTE | 2019-08-29 00:06 | NUR ---
24 HR chart check completed.
--- NOTE | 2019-08-29 05:24 | NUR ---
Patient slept approx. 7 hours throughout shift. Q 15 minute safety checks continued and maintained.
[2019-08-29 07:18] VITALS: BP 110/60
--- NOTE | 2019-08-29 07:48 | NUR ---
SPOKE WITH ANGELA READ NP RE: PT DISCHARGE FOR 11AM AND MEDICAL MEDS NEEDING COMPLETED.
[2019-08-29] MEDS ORDERED: EXELON13.3 MG/21 T (08:15)
[2019-08-29] MEDS ORDERED: MEMANTINE HCL10 MG PO (08:15)
[2019-08-29] MEDS ORDERED: QUETIAPINE FUMA25 MG PO (08:15)
[2019-08-29] MEDS ORDERED: HYDROXYZINE PAM25 M1 PO (08:15)
[2019-08-29] MEDS ORDERED: NEUDEXT PO (08:15)
--- NOTE | 2019-08-29 08:55 | NUR ---
SPEECH PATHOLOGY Patient was seen for treatment this am during breakfast meal. Patient was alert, cooperative and pleasantly confused. He had already eaten a good bit of his breakfast and was fed by his aide who reported that he had been ordered softer foods that were easier to chew, and did well with them. Clinician fed him the remainder of his breakfast, including cold cereal and a shake. Mild residue was observed with cereal, which cleared with liquid wash. No coughing or wet vocal quality was noted. Recommend patient remain on regular diet but order softer foods which are easier to chew. Recommend continued use of safe swallow precautions such as small bites/sips, eating slowly and alternating liquid and solid. Patient is scheduled for discharge today. Further dysphagia is not required at this time but recommend that diet and safety precautions mentioned abouve remain. Thank you for this referral. It has been a pleasure taking part in this patient's care. SONU ROSALES MSCCC-SEARCH ADVERTISING STRATEGIST
--- NOTE | 2019-08-29 09:29 | NUR ---
Alert to person and place with confusion. Short term and residential memory deficit. No hallucinations or delusions. Patient mood is stable. No suicidal, HI or pain. No response to internal stimuli. Compliant with medications. Two person assist with ADL's and transfers via mechanical lift. Up to a daniel chair for comfort. Incontinent of bowel and bladder. Total assist with care. Set up for meals. Plan is to monitor aggression and yelling outburst, Q 15 minutes checks. Provide 1:1 for emotional support and redirection as needed.
--- NOTE | 2019-08-29 11:39 | NUR ---
AM GROUP PT DID NOT ATTEND MORNING GROUP THERAPY.PT IS READYING TO BE DISCHARGED FROM THE UNIT.
--- NOTE | 2019-08-29 14:42 | NUR ---
PT DISCHARGED TO [facility] VIA [facility], PT BELONGINGS AND DC PACKET SENT WITH PT.
--- NOTE | 2019-08-29 15:24 | NUR ---
Patient discharged today returning to [facility]. Follow-up will be with Dr Simmons, visiting psychiatrist. While at [facility], pt's mood and behaviors improved. Pt became social and was pleasant with staff and peers. Pt did participate in some of the programming.
== END 2019-08-29 14:44 | DRG 883 ==
LOC: 3N 17:03
PROVIDERS: ADMIT Psychiatry & Neurology Psychiatry
DX: F63.81 Intermittent explosive disorder (principal); D81.9 Combined immunodeficiency, unspecified; F02.81 Dementia in other diseases classified elsewhere, unspecified severity, with behavioral disturbance; G20 Parkinson's disease; E53.8 Deficiency of other specified B group vitamins; M19.90 Unspecified osteoarthritis, unspecified site; D53.9 Nutritional anemia, unspecified; F41.9 Anxiety disorder, unspecified; G40.909 Epilepsy, unspecified, not intractable, without status epilepticus; K59.00 Constipation, unspecified; F25.9 Schizoaffective disorder, unspecified; G89.4 Chronic pain syndrome; M62.81 Muscle weakness (generalized); K21.9 Gastro-esophageal reflux disease without esophagitis; Z88.0 Allergy status to penicillin; Z88.8 Allergy status to other drugs, medicaments and biological substances; Z79.82 Long term (current) use of aspirin; Z79.899 Other long term (current) drug therapy